=== PATIENT | male | born 2000 | race African-American/Black ===

== ENCOUNTER 2020-08-03 13:25 | Emergency (ER) | payer OTHER ==
[2020-08-03] MEDS ORDERED: DUONEB 2.5-0.5M1 AMP INH (15:04)
[2020-08-03] MEDS ORDERED: MEDROL 4MG DOSEP4 MG PO (15:04)
[2020-08-03] MEDS ORDERED: VENTOLIN HFA IN18 GM INH (15:04)
== END 2020-08-03 15:45 | disposition home or self-care (01) ==
LOC: FER 13:25
DX: J45.901 Unspecified asthma with (acute) exacerbation (principal); Z91.018 Allergy to other foods
CPT/HCPCS: 94640; J2930